=== PATIENT | male | born 1970 | race Caucasian/White ===

== ENCOUNTER 2023-07-28 17:08 | Inpatient (IN) | payer BC, OTHER ==
[2023-07-28 17:20] VITALS: BMI 31.6
[2023-07-28] MEDS ORDERED: ACETAMINOPHEN 500 MG TABLET (FP) PO ONE (18:00)
[2023-07-28] MEDS ORDERED: ACETAMINOPHEN 500 MG TABLET (FP) ONE (18:12)
[2023-07-28 18:32] LABS: BASO % 0.1 % (0-2.0); EOS % 0.8 % (0-4.5); HEMATOCRIT 32.2 % (35.4-49); HEMOGLOBIN 10.4 GM/dL (11.7-16.9); MCH 29.8 pg (25.7-33.7); MCHC 32.3 g/dl (32.0-35.9); MEAN CELL VOLUME 92.4 fl (80-96); MEAN PLT VOLUME 6.4 fl (7.5-11.1); MONO % 1.8 % (3.8-10.2); NEUT % 70.3 % (42.8-82.8); PLATELET COUNT 152 10^3/uL (134-434); RBC 3.48 M/mm3 (4.00-5.60); RDW 14.2 % (11.9-15.9)
[2023-07-28] MEDS ORDERED: AZITHROMYCIN IVPB 500 MG in DEXTROSE 5%-WATER - 250 ML IVPB ONE (18:43)
[2023-07-28 18:45] LABS: WHITE BLOOD COUNT 1.6 K/mm3 (4.0-10.0)
[2023-07-28 18:47] LABS: POTASSIUM 4.4 mmol/L (3.5-5.1)
[2023-07-28] MEDS ORDERED: VANCOMYCIN 1,000 MG in DEXTROSE 5%-WATER - 250 ML IVPB ONE (18:48)
[2023-07-28] MEDS ORDERED: CEFEPIME HCL 1 GM VIAL (RESTRICTED TO ID) IVPB ONE (18:49)
[2023-07-28 18:50] LABS: CALCIUM 8.7 mg/dL (8.5-10.1)
[2023-07-28 18:51] LABS: ALBUMIN 3.7 g/dl (3.4-5.0)
[2023-07-28 18:55] LABS: BILIRUBIN,TOTAL 0.7 mg/dL (0.2-1); TOT PROT 7.6 g/dl (6.4-8.2)
[2023-07-28] MEDS ORDERED: AZITHROMYCIN IVPB 500 MG/250 ML BAG IVPB ONE (19:35)
[2023-07-28] MEDS ORDERED: CEFEPIME 1 GM/100 ML BAG IVPB ONE (19:35)
[2023-07-28 19:36] LABS: ANISOCYTOSIS 0; HELMET CELLS 0; HOWELL-JOLLY BODIES 0; MACROCYTOSIS 0; OVALOCYTE 0; PLATELET ESTIMATE NORMAL; ROULEAU 0; SICKELED CELLS 0; TARGET CELLS 0; TEAR DROP CELLS 0; TOXIC GRANULATION 0
[2023-07-28 22:30] LABS: URINE APPEARANCE CLEAR; URINE BILIRUBIN NEGATIVE (NEGATIVE); URINE COLOR YELLOW; URINE GLUCOSE (UA) NEGATIVE (NEGATIVE); URINE KETONE NEGATIVE (NEGATIVE); URINE LEUK ESTERASE NEGATIVE (NEGATIVE); URINE NITRITE NEGATIVE (NEGATIVE); URINE PROTEIN NEGATIVE (NEGATIVE); URINE UROBILINOGEN 0.2 mg/dL (0.2-1.0)
[2023-07-29] MEDS: SODIUM CHLORIDE 1,000 ML IV SCH ×2 (01:14→14:17)
[2023-07-29] MEDS ORDERED: CEFEPIME 2 GM/100 ML BAG IVPB ONE (03:29)
[2023-07-29] MEDS: CEFEPIME 2 GM in DEXTROSE 5%-WATER 100 ML IVPB SCH ×4 (03:56→19:35)
[2023-07-29] MEDS ORDERED: CEFEPIME HCL 2 GM VIAL (RESTRICTED TO ID) IVPB SCH (04:00)
[2023-07-29 08:45] LABS: HEMATOCRIT 29.6 % (35.4-49); HEMOGLOBIN 9.7 GM/dL (11.7-16.9); MCH 30.1 pg (25.7-33.7); MCHC 32.6 g/dl (32.0-35.9); MEAN CELL VOLUME 92.3 fl (80-96); MEAN PLT VOLUME 6.5 fl (7.5-11.1); PLATELET COUNT 153 10^3/uL (134-434); RBC 3.21 M/mm3 (4.00-5.60); RDW 14.3 % (11.9-15.9); WHITE BLOOD COUNT 1.1 K/mm3 (4.0-10.0)
[2023-07-29 09:20] LABS: CALCIUM 8.4 mg/dL (8.5-10.1)
[2023-07-29 09:21] LABS: ALBUMIN 3.2 g/dl (3.4-5.0); BLOOD UREA NITROGEN 13.2 mg/dL (7-18); MAGNESIUM 2.2 mg/dL (1.8-2.4)
[2023-07-29 09:25] LABS: BILIRUBIN,TOTAL 1.1 mg/dL (0.2-1); CREATININE 0.8 mg/dL (0.55-1.3)
[2023-07-29 09:53] LABS: ANISOCYTOSIS 0; HELMET CELLS 0; HOWELL-JOLLY BODIES 0; MACROCYTOSIS 0; OVALOCYTE 0; ROULEAU 0; SICKELED CELLS 0; TARGET CELLS 0; TEAR DROP CELLS 0; TOXIC GRANULATION 0
[2023-07-29] MEDS ORDERED: ENOXAPARIN NA (PORCINE) 40 MG/0.4 ML DISP.SYRIN SQ SCH (10:00)
[2023-07-29] MEDS ORDERED: AZITHROMYCIN IVPB 500 MG/250 ML BAG IVPB ONE (10:45)
[2023-07-29] MEDS: AZITHROMYCIN IVPB 500 MG/250 ML BAG IVPB SCH (10:46)
[2023-07-29] MEDS: ACETAMINOPHEN 325 MG TABLET (FP) PO PRN (21:04)
[2023-07-30] MEDS: SODIUM CHLORIDE 1,000 ML IV SCH ×4 (01:25→15:45)
[2023-07-30] MEDS: CEFEPIME 2 GM in DEXTROSE 5%-WATER 100 ML IVPB SCH ×3 (01:27→17:43)
[2023-07-30] MEDS: ACETAMINOPHEN 325 MG TABLET (FP) PO PRN ×2 (06:11→21:51)
[2023-07-30 08:41] LABS: BASO % 0.1 % (0-2.0); EOS % 4.3 % (0-4.5); HEMATOCRIT 27.1 % (35.4-49); HEMOGLOBIN 9.2 GM/dL (11.7-16.9); LYMPH % 18.4 % (8-40); MCH 30.8 pg (25.7-33.7); MCHC 33.9 g/dl (32.0-35.9); MEAN CELL VOLUME 90.9 fl (80-96); MEAN PLT VOLUME 6.4 fl (7.5-11.1); MONO % 1.3 % (3.8-10.2); NEUT % 75.9 % (42.8-82.8); PLATELET COUNT 145 10^3/uL (134-434); RBC 2.98 M/mm3 (4.00-5.60); RDW 14.3 % (11.9-15.9)
[2023-07-30 09:00] LABS: POTASSIUM 3.9 mmol/L (3.5-5.1)
[2023-07-30 09:05] LABS: WHITE BLOOD COUNT 0.8 K/mm3 (4.0-10.0)
[2023-07-30 09:14] LABS: BLOOD UREA NITROGEN 10.7 mg/dL (7-18)
[2023-07-30 09:16] LABS: ALBUMIN 2.9 g/dl (3.4-5.0)
[2023-07-30 09:19] LABS: CREATININE 0.7 mg/dL (0.55-1.3)
[2023-07-30 09:21] LABS: BILIRUBIN,TOTAL 0.9 mg/dL (0.2-1); TOT PROT 6.6 g/dl (6.4-8.2)
[2023-07-30 09:43] LABS: ANISOCYTOSIS 0; MACROCYTOSIS 0
[2023-07-30] MEDS: AZITHROMYCIN IVPB 500 MG/250 ML BAG IVPB SCH (11:50)
[2023-07-31] MEDS: CEFEPIME 2 GM in DEXTROSE 5%-WATER 100 ML IVPB SCH ×3 (02:37→18:11)
[2023-07-31 10:24] LABS: HEMATOCRIT 31.1 % (35.4-49); HEMOGLOBIN 10.1 GM/dL (11.7-16.9); MCHC 32.3 g/dl (32.0-35.9); MEAN CELL VOLUME 92.8 fl (80-96); MEAN PLT VOLUME 6.5 fl (7.5-11.1); PLATELET COUNT 185 10^3/uL (134-434); RBC 3.35 M/mm3 (4.00-5.60); RDW 14.3 % (11.9-15.9)
[2023-07-31] MEDS: AZITHROMYCIN IVPB 500 MG/250 ML BAG IVPB SCH (10:33)
[2023-07-31 10:44] LABS: POTASSIUM 4.1 mmol/L (3.5-5.1)
[2023-07-31 10:48] LABS: CALCIUM 8.5 mg/dL (8.5-10.1); MAGNESIUM 2.6 mg/dL (1.8-2.4)
[2023-07-31 10:49] LABS: BLOOD UREA NITROGEN 12.2 mg/dL (7-18)
[2023-07-31 10:51] LABS: CREATININE 0.8 mg/dL (0.55-1.3)
[2023-07-31 10:52] LABS: PHOSPHOROUS 3.1 mg/dL (2.5-4.9)
[2023-07-31 10:53] LABS: BILIRUBIN,TOTAL 0.9 mg/dL (0.2-1)
[2023-07-31 11:52] LABS: ANISOCYTOSIS 0; HELMET CELLS 0; HOWELL-JOLLY BODIES 0; MACROCYTOSIS 0; OVALOCYTE 0; ROULEAU 0; SICKELED CELLS 0; TARGET CELLS 0; TEAR DROP CELLS 0; TOXIC GRANULATION 0
[2023-07-31] MEDS ORDERED: CEFEPIME HCL 2 GM VIAL (RESTRICTED TO ID) ONE (17:35)
[2023-07-31] MEDS: SODIUM CHLORIDE 1,000 ML IV SCH (18:13)
[2023-08-01] MEDS: CEFEPIME 2 GM in DEXTROSE 5%-WATER 100 ML IVPB SCH ×3 (03:48→17:36)
[2023-08-01 08:37] LABS: HEMOGLOBIN 9.8 GM/dL (11.7-16.9); MCH 30.7 pg (25.7-33.7); MCHC 33.9 g/dl (32.0-35.9); MEAN CELL VOLUME 90.6 fl (80-96); MEAN PLT VOLUME 6.4 fl (7.5-11.1); PLATELET COUNT 185 10^3/uL (134-434); RDW 14.4 % (11.9-15.9)
[2023-08-01 08:46] LABS: POTASSIUM 4.4 mmol/L (3.5-5.1)
[2023-08-01 08:49] LABS: CALCIUM 8.5 mg/dL (8.5-10.1)
[2023-08-01 08:50] LABS: ALBUMIN 2.8 g/dl (3.4-5.0); BLOOD UREA NITROGEN 10.4 mg/dL (7-18); MAGNESIUM 2.4 mg/dL (1.8-2.4)
[2023-08-01 08:51] LABS: WHITE BLOOD COUNT 0.9 K/mm3 (4.0-10.0)
[2023-08-01 08:53] LABS: CREATININE 0.7 mg/dL (0.55-1.3)
[2023-08-01 08:54] LABS: BILIRUBIN,TOTAL 0.4 mg/dL (0.2-1)
[2023-08-01 08:55] LABS: TOT PROT 6.7 g/dl (6.4-8.2)
[2023-08-01] MEDS: AZITHROMYCIN IVPB 500 MG/250 ML BAG IVPB SCH (09:01)
[2023-08-01 10:18] LABS: ANISOCYTOSIS 1+; MACROCYTOSIS 1+; TARGET CELLS 1+
[2023-08-02] MEDS: CEFEPIME 2 GM in DEXTROSE 5%-WATER 100 ML IVPB SCH ×3 (01:18→17:09)
[2023-08-02 08:17] LABS: HEMATOCRIT 30.6 % (35.4-49); HEMOGLOBIN 9.9 GM/dL (11.7-16.9); MCH 30.2 pg (25.7-33.7); MCHC 32.3 g/dl (32.0-35.9); MEAN CELL VOLUME 93.4 fl (80-96); MEAN PLT VOLUME 6.5 fl (7.5-11.1); PLATELET COUNT 216 10^3/uL (134-434); RBC 3.28 M/mm3 (4.00-5.60); RDW 13.7 % (11.9-15.9)
[2023-08-02 08:34] LABS: WHITE BLOOD COUNT 0.8 K/mm3 (4.0-10.0)
[2023-08-02 08:40] LABS: POTASSIUM 4.6 mmol/L (3.5-5.1)
[2023-08-02 08:59] LABS: CALCIUM 8.7 mg/dL (8.5-10.1)
[2023-08-02 09:00] LABS: ALBUMIN 2.9 g/dl (3.4-5.0); BLOOD UREA NITROGEN 12.6 mg/dL (7-18); MAGNESIUM 2.5 mg/dL (1.8-2.4)
[2023-08-02 09:03] LABS: CREATININE 0.7 mg/dL (0.55-1.3)
[2023-08-02 09:05] LABS: BILIRUBIN,TOTAL 0.4 mg/dL (0.2-1); TOT PROT 6.8 g/dl (6.4-8.2)
[2023-08-02 09:23] LABS: ANISOCYTOSIS 0; MACROCYTOSIS 0
[2023-08-02] MEDS: AZITHROMYCIN IVPB 500 MG/250 ML BAG IVPB SCH (10:55)
[2023-08-03] MEDS: CEFEPIME 2 GM in DEXTROSE 5%-WATER 100 ML IVPB SCH ×3 (02:03→17:28)
[2023-08-03 10:13] LABS: POTASSIUM 4.5 mmol/L (3.5-5.1)
[2023-08-03 10:15] LABS: BLOOD UREA NITROGEN 16.2 mg/dL (7-18)
[2023-08-03 10:16] LABS: ALBUMIN 3.1 g/dl (3.4-5.0); MAGNESIUM 2.3 mg/dL (1.8-2.4)
[2023-08-03 10:18] LABS: CREATININE 0.7 mg/dL (0.55-1.3)
[2023-08-03 10:20] LABS: BILIRUBIN,TOTAL 0.4 mg/dL (0.2-1); TOT PROT 7.2 g/dl (6.4-8.2)
[2023-08-03 10:22] LABS: HEMATOCRIT 31.8 % (35.4-49); HEMOGLOBIN 10.6 GM/dL (11.7-16.9); MCHC 33.3 g/dl (32.0-35.9); MEAN CELL VOLUME 90.2 fl (80-96); MEAN PLT VOLUME 6.5 fl (7.5-11.1); PLATELET COUNT 250 10^3/uL (134-434); RBC 3.52 M/mm3 (4.00-5.60); RDW 14.3 % (11.9-15.9)
[2023-08-03 10:36] LABS: WHITE BLOOD COUNT 0.7 K/mm3 (4.0-10.0)
[2023-08-03] MEDS: AZITHROMYCIN IVPB 500 MG/250 ML BAG IVPB SCH (10:51)
[2023-08-03 11:12] LABS: ANISOCYTOSIS 0; HELMET CELLS 0; HOWELL-JOLLY BODIES 0; MACROCYTOSIS 0; OVALOCYTE 0; ROULEAU 0; SICKELED CELLS 0; TARGET CELLS 0; TEAR DROP CELLS 0; TOXIC GRANULATION 0
[2023-08-04] MEDS: CEFEPIME 2 GM in DEXTROSE 5%-WATER 100 ML IVPB SCH ×3 (02:06→18:13)
[2023-08-04 08:07] LABS: HEMATOCRIT 30.8 % (35.4-49); HEMOGLOBIN 10.2 GM/dL (11.7-16.9); MCH 30.4 pg (25.7-33.7); MCHC 33.3 g/dl (32.0-35.9); MEAN CELL VOLUME 91.3 fl (80-96); MEAN PLT VOLUME 6.3 fl (7.5-11.1); PLATELET COUNT 242 10^3/uL (134-434); RBC 3.37 M/mm3 (4.00-5.60); RDW 14.2 % (11.9-15.9)
[2023-08-04 08:24] LABS: WHITE BLOOD COUNT 0.8 K/mm3 (4.0-10.0)
[2023-08-04 08:26] LABS: POTASSIUM 4.7 mmol/L (3.5-5.1)
[2023-08-04 08:31] LABS: BLOOD UREA NITROGEN 15.4 mg/dL (7-18); CALCIUM 8.8 mg/dL (8.5-10.1); MAGNESIUM 2.4 mg/dL (1.8-2.4)
[2023-08-04 08:35] LABS: CREATININE 0.7 mg/dL (0.55-1.3); TOT PROT 6.9 g/dl (6.4-8.2)
[2023-08-04 08:36] LABS: BILIRUBIN,TOTAL 0.4 mg/dL (0.2-1)
[2023-08-04 10:38] LABS: ANISOCYTOSIS 1+; MACROCYTOSIS 0
[2023-08-04] MEDS: ACYCLOVIR 400 MG TABLET PO SCH ×2 (11:18→21:33)
[2023-08-04] MEDS: FLUCONAZOLE 100 MG TABLET (UD) PO SCH ×2 (11:18→21:33)
[2023-08-04] MEDS: AZITHROMYCIN IVPB 500 MG/250 ML BAG IVPB SCH (11:18)
[2023-08-04] MEDS: MULTIVITAMINS (DAILY MVI) TABLET (FP) PO SCH (18:13)
[2023-08-05] MEDS: CEFEPIME 2 GM in DEXTROSE 5%-WATER 100 ML IVPB SCH ×2 (02:31→11:35)
[2023-08-05 09:28] LABS: HEMATOCRIT 33.2 % (35.4-49); MEAN CELL VOLUME 90.9 fl (80-96); MEAN PLT VOLUME 6.2 fl (7.5-11.1); PLATELET COUNT 271 10^3/uL (134-434); RBC 3.65 M/mm3 (4.00-5.60); RDW 14.1 % (11.9-15.9)
[2023-08-05 09:44] LABS: POTASSIUM 3.8 mmol/L (3.5-5.1)
[2023-08-05 09:48] LABS: ALBUMIN 3.3 g/dl (3.4-5.0); BLOOD UREA NITROGEN 14.9 mg/dL (7-18); CALCIUM 8.6 mg/dL (8.5-10.1); MAGNESIUM 2.2 mg/dL (1.8-2.4)
[2023-08-05 09:51] LABS: CREATININE 0.9 mg/dL (0.55-1.3)
[2023-08-05 09:53] LABS: BILIRUBIN,TOTAL 0.5 mg/dL (0.2-1); TOT PROT 7.5 g/dl (6.4-8.2)
[2023-08-05 10:04] LABS: ANISOCYTOSIS 1+; MACROCYTOSIS 0
[2023-08-05] MEDS: ACYCLOVIR 400 MG TABLET PO SCH (10:17)
[2023-08-05] MEDS: FLUCONAZOLE 100 MG TABLET (UD) PO SCH (10:17)
[2023-08-05] MEDS: MULTIVITAMINS (DAILY MVI) TABLET (FP) PO SCH (10:17)
[2023-08-05] MEDS: ENOXAPARIN NA (PORCINE) 40 MG/0.4 ML DISP.SYRIN SQ SCH (10:42)
[2023-08-05] MEDS: AZITHROMYCIN IVPB 500 MG/250 ML BAG IVPB SCH (11:35)
[2023-08-05] MEDS: SODIUM CHLORIDE 1,000 ML IV SCH (13:22)
[2023-08-05 15:13] VITALS: RESP 18
[2023-08-05] MEDS: diphenhydrAMINE HCL 25 MG CAPSULE (FP) PO PRN (21:52)
[2023-08-06] MEDS: SODIUM CHLORIDE 1,000 ML IV SCH (02:14)
[2023-08-06] MEDS: MULTIVITAMINS (DAILY MVI) TABLET (FP) PO SCH (09:20)
[2023-08-06] MEDS: diphenhydrAMINE HCL 25 MG CAPSULE (FP) PO PRN ×2 (09:20→22:30)
[2023-08-06] MEDS: ENOXAPARIN NA (PORCINE) 40 MG/0.4 ML DISP.SYRIN SQ SCH (09:23)
[2023-08-06 09:51] LABS: HEMOGLOBIN 10.6 GM/dL (11.7-16.9); MCH 29.6 pg (25.7-33.7); MCHC 32.1 g/dl (32.0-35.9); MEAN CELL VOLUME 92.4 fl (80-96); MEAN PLT VOLUME 6.4 fl (7.5-11.1); PLATELET COUNT 283 10^3/uL (134-434); RBC 3.57 M/mm3 (4.00-5.60)
[2023-08-06 09:57] LABS: WHITE BLOOD COUNT 0.9 K/mm3 (4.0-10.0)
[2023-08-06 10:01] LABS: POTASSIUM 4.1 mmol/L (3.5-5.1)
[2023-08-06 10:19] LABS: CALCIUM 8.4 mg/dL (8.5-10.1)
[2023-08-06 10:20] LABS: ALBUMIN 3.1 g/dl (3.4-5.0); BLOOD UREA NITROGEN 13.9 mg/dL (7-18); MAGNESIUM 2.2 mg/dL (1.8-2.4)
[2023-08-06 10:23] LABS: CREATININE 0.8 mg/dL (0.55-1.3)
[2023-08-06 10:24] LABS: BILIRUBIN,TOTAL 0.8 mg/dL (0.2-1); TOT PROT 7.1 g/dl (6.4-8.2)
[2023-08-06 10:33] LABS: ANISOCYTOSIS 0; MACROCYTOSIS 0
[2023-08-07] MEDS: SODIUM CHLORIDE 1,000 ML IV SCH ×2 (03:52→09:50)
[2023-08-07] MEDS: diphenhydrAMINE HCL 25 MG CAPSULE (FP) PO PRN (04:01)
[2023-08-07 08:32] LABS: HEMATOCRIT 32.1 % (35.4-49); HEMOGLOBIN 10.3 GM/dL (11.7-16.9); MCH 29.7 pg (25.7-33.7); MEAN CELL VOLUME 92.8 fl (80-96); PLATELET COUNT 271 10^3/uL (134-434); RBC 3.46 M/mm3 (4.00-5.60); RDW 14.2 % (11.9-15.9)
[2023-08-07 08:41] LABS: WHITE BLOOD COUNT 0.9 K/mm3 (4.0-10.0)
[2023-08-07 09:00] LABS: POTASSIUM 3.9 mmol/L (3.5-5.1)
[2023-08-07 09:11] LABS: CALCIUM 8.5 mg/dL (8.5-10.1); MAGNESIUM 2.3 mg/dL (1.8-2.4)
[2023-08-07 09:12] LABS: ALBUMIN 3.2 g/dl (3.4-5.0)
[2023-08-07 09:15] LABS: CREATININE 0.7 mg/dL (0.55-1.3)
[2023-08-07 09:16] LABS: BILIRUBIN,TOTAL 0.6 mg/dL (0.2-1); TOT PROT 7.2 g/dl (6.4-8.2)
[2023-08-07] MEDS: ENOXAPARIN NA (PORCINE) 40 MG/0.4 ML DISP.SYRIN SQ SCH (09:30)
[2023-08-07] MEDS: MULTIVITAMINS (DAILY MVI) TABLET (FP) PO SCH (09:30)
[2023-08-07] MEDS ORDERED: TBO-FILGRASTIM 480 MCG/0.8 ML DISP.SYRIN SQ SCH (10:00)
[2023-08-07 10:03] LABS: ANISOCYTOSIS 0; HELMET CELLS 0; HOWELL-JOLLY BODIES 0; MACROCYTOSIS 0; OVALOCYTE 0; ROULEAU 0; SICKELED CELLS 0; TARGET CELLS 0; TEAR DROP CELLS 0; TOXIC GRANULATION 0
[2023-08-07 14:18] VITALS: BP 114/61; PULSE 78; TEMP 98.4
== END 2023-08-07 16:09 | disposition home or self-care (01) | DRG 871 ==
LOC: JER 17:08 → JERBED 20:25 → OBSVTOIN 20:25 → J8W 07-29 20:06
PROVIDERS: ADMIT Internal Medicine; ATTEND Nurse Practitioner Family
DX: A41.9 Sepsis, unspecified organism (principal); J18.9 Pneumonia, unspecified organism; C91.40 Hairy cell leukemia not having achieved remission; D70.9 Neutropenia, unspecified; R21 Rash and other nonspecific skin eruption; E66.9 Obesity, unspecified; Z68.31 Body mass index [BMI] 31.0-31.9, adult; R50.81 Fever presenting with conditions classified elsewhere
CPT/HCPCS: 0241U-QW; 36415; 71045-TC-FY; 71250-TC; 80053; 81003; 83735; 84100; 85025; 86645; 87040; 87070; 87081; 87086; 87205; 87449; 87899; 93005; 93010; 99285-25; J1447

== ENCOUNTER 2024-01-20 11:18 | Inpatient (IN) | payer OTHER ==
[2024-01-20] MEDS ORDERED: FAMOTIDINE 20 MG/50 ML IVPB 20 MG/50 ML MG IVPB ONE (12:59)
[2024-01-20] MEDS ORDERED: ACETAMINOPHEN INJECTION 100 ML IVPB ONE (12:59)
[2024-01-20] MEDS ORDERED: ONDANSETRON 4 MG/2 ML VIAL ONE ×2 (12:59→18:30)
[2024-01-20] MEDS: SODIUM CHLORIDE 1,000 ML IV STA (13:12)
[2024-01-20] MEDS: FAMOTIDINE 20 MG/50 ML IVPB 20 MG/50 ML MG IVPB ONE (13:13)
[2024-01-20] MEDS: ACETAMINOPHEN 1000 MG/100 ML BAG IVPB ONE (13:13)
[2024-01-20] MEDS: ONDANSETRON 4 MG/2 ML VIAL IVPUSH ONE (13:13)
[2024-01-20 13:18] LABS: HEMATOCRIT 36.7 % (35.4-49); HEMOGLOBIN 12.2 GM/dL (11.7-16.9); MCH 28.2 pg (25.7-33.7); MCHC 33.2 g/dl (32.0-35.9); MEAN PLT VOLUME 7.9 fl (7.5-11.1); PLATELET COUNT 181 10^3/uL (134-434); RBC 4.31 M/mm3 (4.00-5.60); RDW 14.7 % (11.9-15.9); WHITE BLOOD COUNT 5.7 K/mm3 (4.0-10.0)
[2024-01-20 13:25] LABS: INR 1.04 (0.83-1.09); PROTHROMBIN TIME (PATIENT) 12.1 SEC (9.7-13.0)
[2024-01-20 13:28] LABS: ACTIVATED PTT 31.7 SECONDS (25.2-36.5)
[2024-01-20 13:44] LABS: POTASSIUM 3.7 mmol/L (3.5-5.1)
[2024-01-20 13:47] LABS: ALBUMIN 3.9 g/dl (3.4-5.0); BLOOD UREA NITROGEN 16.2 mg/dL (7-18); CALCIUM 9.3 mg/dL (8.5-10.1)
[2024-01-20 13:52] LABS: BILIRUBIN,TOTAL 0.8 mg/dL (0.2-1); TOT PROT 7.2 g/dl (6.4-8.2)
[2024-01-20 13:59] LABS: CREATININE 0.7 mg/dL (0.55-1.3)
[2024-01-20 14:35] LABS: ANISOCYTOSIS 0; MACROCYTOSIS 0
[2024-01-20 15:03] LABS: URINE APPEARANCE CLEAR; URINE BILIRUBIN NEGATIVE (NEGATIVE); URINE COLOR YELLOW; URINE GLUCOSE (UA) NEGATIVE (NEGATIVE); URINE KETONE 2+ (NEGATIVE); URINE LEUK ESTERASE NEGATIVE (NEGATIVE); URINE NITRITE NEGATIVE (NEGATIVE); URINE PROTEIN NEGATIVE (NEGATIVE); URINE UROBILINOGEN 0.2 mg/dL (0.2-1.0)
[2024-01-20] MEDS: BUPIVACAINE HCL/PF 0.5% (5 MG/ML) 30 ML VIAL IJ ONE ×2 (16:41)
[2024-01-20] MEDS ORDERED: morphine SULFATE 4 MG/ML VIAL ONE (17:01)
[2024-01-20] MEDS ORDERED: PIPERACILLIN/TAZOB 4.5 GM 4.5 GM/100 ML BAG IVPB ONE (17:01)
[2024-01-20] MEDS: morphine CARPU-JECT 4 MG/1 ML DISP.SYRIN IVPUSH ONE (17:10)
[2024-01-20] MEDS: PIPERACILLIN/TAZOB 4.5 GM 4.5 GM/100 ML BAG IVPB ONE (17:11)
[2024-01-20] MEDS ORDERED: ONDANSETRON 4 MG/2 ML VIAL IVPUSH PRN ×2 (17:32→19:29)
[2024-01-20] MEDS ORDERED: PROMETHAZINE HCL 25 MG/1 ML VIAL IVPB PRN ×2 (17:32→19:29)
[2024-01-20] MEDS ORDERED: PROPOFOL 20 ML ONE (18:03)
[2024-01-20] MEDS ORDERED: ROCURONIUM BROMIDE 50 MG/5 ML SYRINGE ONE (18:04)
[2024-01-20] MEDS ORDERED: LIDOCAINE HCL/PF 2% SDV 5ML VIAL ONE (18:04)
[2024-01-20] MEDS ORDERED: SUCCINYLCHOLINE CHLORIDE 200 MG/10 ML SYRINGE ONE (18:04)
[2024-01-20] MEDS ORDERED: MIDAZOLAM HCL 2 MG/2 ML SINGLE DOSE VIAL ONE (18:05)
[2024-01-20] MEDS ORDERED: FENTANYL CITRATE/PF 50 MCG/ML VIAL ONE ×2 (18:05→18:40)
[2024-01-20] MEDS ORDERED: DEXAMETHASONE SOD PHOSPHATE 4 MG/1 ML VIAL ONE (18:30)
[2024-01-20] MEDS ORDERED: ACETAMINOPHEN 325 MG TABLET (FP) PO PRN (18:55)
[2024-01-20] MEDS ORDERED: SUGAMMADEX SODIUM 200 MG/2 ML VIAL ONE (18:56)
[2024-01-20] MEDS: LACTATED RINGERS SOLUTION 1,000 ML IV SCH ×2 (20:24→22:32)
[2024-01-21 02:24] VITALS: BMI 32.3
[2024-01-21 08:02] LABS: HEMATOCRIT 34.8 % (35.4-49); HEMOGLOBIN 11.4 GM/dL (11.7-16.9); MCH 28.2 pg (25.7-33.7); MCHC 32.8 g/dl (32.0-35.9); MEAN CELL VOLUME 86.2 fl (80-96); MEAN PLT VOLUME 7.7 fl (7.5-11.1); PLATELET COUNT 171 10^3/uL (134-434); RBC 4.03 M/mm3 (4.00-5.60); RDW 14.3 % (11.9-15.9); WHITE BLOOD COUNT 6.2 K/mm3 (4.0-10.0)
[2024-01-21 08:17] LABS: POTASSIUM 4.1 mmol/L (3.5-5.1)
[2024-01-21 08:20] LABS: BLOOD UREA NITROGEN 10.3 mg/dL (7-18); CALCIUM 8.6 mg/dL (8.5-10.1); MAGNESIUM 2.2 mg/dL (1.8-2.4)
[2024-01-21 08:23] LABS: CREATININE 0.7 mg/dL (0.55-1.3); PHOSPHOROUS 3.2 mg/dL (2.5-4.9)
[2024-01-21 08:25] LABS: BILIRUBIN,TOTAL 1.3 mg/dL (0.2-1); TOT PROT 6.3 g/dl (6.4-8.2)
[2024-01-21] MEDS: ACETAMINOPHEN 325 MG TABLET (FP) PO PRN (10:02)
[2024-01-21 15:01] VITALS: BP 116/58; PULSE 59; RESP 18; TEMP 98.4
== END 2024-01-21 15:18 | disposition home or self-care (01) | DRG 398 ==
LOC: JER 11:18 → JERBED 17:30 → J8W 20:22
PROVIDERS: ADMIT Internal Medicine; ATTEND Nurse Practitioner Family
PROC: 0DTJ4ZZ Resection of Appendix, Percutaneous Endoscopic Approach (ICD-10-PCS; principal; 2024-01-20 17:40)
DX: K35.80 Unspecified acute appendicitis (principal); C91.40 Hairy cell leukemia not having achieved remission
CPT/HCPCS: 36415; 74177-TC; 76705-TC; 80053; 81003; 83690; 83735; 84100; 84484; 85025; 85610; 85730; 86850; 86900; 86901; 87086; 88304-TC; 93005; 93010; 94010; 94760; 99285-25; J0131; Q9967